=== PATIENT | female | born 2000 ===

== ENCOUNTER 2023-04-12 18:00 | Inpatient (IN) | payer OTHER ==
[2023-04-12] MEDS ORDERED: Acetaminophen 500 MG TAB PO PRN (20:07)
[2023-04-12] MEDS ORDERED: Promethazine HCl 25 MG/ML VIAL IM PRN (20:07)
[2023-04-12] MEDS ORDERED: hydrALAZINE 20 MG/ML VIAL SLOW IVP PRN (20:07)
[2023-04-12] MEDS ORDERED: Ondansetron PF 4 MG/2 ML Vial IVP PRN (20:07)
[2023-04-12] MEDS ORDERED: Carboprost 250 MCG/ML AMP IM PRN (20:07)
[2023-04-12] MEDS ORDERED: Misoprostol 200 MCG TAB PR PRN (20:07)
[2023-04-12] MEDS ORDERED: Methylergonovine 0.2 MG/ML VIAL IM PRN (20:07)
[2023-04-12] MEDS ORDERED: Lidocaine 1% (PF) 30 ML VIAL SC PRN (20:07)
[2023-04-12] MEDS ORDERED: Oxytocin 30 units/NS 500 ML 500 ML IV SCH ×3 (20:15)
[2023-04-13 02:20] VITALS: BMI 24.0
[2023-04-13 02:45] LABS: Hematocrit 33.8 % (34.9-44.5); Hemoglobin 11.7 g/dL (12.0-15.5); Mean Corpuscular HGB CONC 34.6 g/dL (32.0-36.0); Mean Corpuscular Hemoglobin 31.7 pg (27.0-33.0); Mean Corpuscular Volume 91.6 fl (81.6-98.3); Mean Platelet Volume 10.5 fl (7.4-10.4); Platelet Count 275 10x3/uL (150-450); RBC Distribution Width 12.6 % (11.5-14.5); Red Blood Cell (RBC) Count 3.69 10x6/uL (3.90-5.03); White Blood Cell (WBC) Count 5.8 10x3/uL (3.5-10.5)
[2023-04-13 03:02] LABS: HBSAg Index 0.18 S/CO (0-0.99); Hep B Surf Ag - L&D Non-Reactive S/CO (NonReactive); Syphilis Antibody Nonreactive (Nonreactive); Syphilis Antibody Index 0.12 S/CO (<1.00 Non-Reactive)
[2023-04-13] MEDS: Lactated Ringer's 1,000 ML IV SCH (03:42)
[2023-04-13] MEDS ORDERED: ePHEDrine Sulfate 50 MG/10 ML VIAL ONE (08:00)
[2023-04-13] MEDS ORDERED: Bupivacaine 0.25% HCL 30 ML VIAL ONE (08:00)
[2023-04-13] MEDS ORDERED: Lactated Ringer's 500 ML IV PRN (08:38)
[2023-04-13] MEDS ORDERED: Ondansetron PF 4 MG/2 ML Vial IVP PRN (08:38)
[2023-04-13] MEDS ORDERED: Promethazine HCl 25 MG/ML VIAL IM PRN (08:38)
[2023-04-13] MEDS ORDERED: Moisturizing Cream (Eucerin) 113 GM JAR TOP PRN (08:38)
[2023-04-13] MEDS ORDERED: Naloxone HCl 0.4 mg/ml Vial IVP PRN ×2 (08:38)
[2023-04-13] MEDS ORDERED: ePHEDrine Sulfate 50 MG/10 ML VIAL SLOW IVP PRN (08:38)
[2023-04-13] MEDS ORDERED: diphenhydrAMINE 50 MG/ML VIAL IVP PRN (08:38)
[2023-04-13] MEDS ORDERED: fentaNYL 2 mcg/Ropivacaine 0.2% Epidural 100 ML CADD EPIDURAL SCH (08:45)
[2023-04-13] MEDS ORDERED: Communication Order-Pharmacy FS SCH (08:45)
[2023-04-13] MEDS: fentaNYL/Ropivacaine Epidural 100 ML ONE (08:51)
[2023-04-13 15:12] LABS: Amphetamine Not Detected (NotDetected); Barbiturates Screen Not Detected (NotDetected); Benzodiazepine Screen Not Detected (NotDetected); Cocaine Metabolite Screen Not Detected (NotDetected); Methadone Not Detected (NotDetected); Methamphetamine Detected (NotDetected); Opiate Screen Not Detected (NotDetected); Oxycodone Screen Not Detected (NotDetected); Phencyclidine (PCP) Not Detected (NotDetected); THC/Cannabinoid Screen Not Detected (NotDetected); Tricyclic Screen Not Detected (NotDetected)
[2023-04-13] MEDS ORDERED: Milk Of Magnesia 30 ML UDCUP PO PRN (20:41)
[2023-04-13] MEDS ORDERED: Boostrix 0.5 ML (Tdap) VIAL (>/=7 yrs of age) IM ONE (20:41)
[2023-04-13] MEDS ORDERED: Bisacodyl 10 MG SUPP PR PRN (20:41)
[2023-04-13] MEDS ORDERED: hydrALAZINE 20 MG/ML VIAL SLOW IVP PRN (20:41)
[2023-04-13] MEDS: Acetaminophen 325 MG TAB PO PRN (21:01)
[2023-04-13] MEDS: Docusate 100 MG CAP PO SCH (21:01)
[2023-04-13] MEDS: Ibuprofen 800 MG TAB PO SCH (21:01)
[2023-04-14] MEDS: Prenatal Vitamin 1 TAB PO SCH (08:40)
[2023-04-14] MEDS: Ferrous Sulfate 325 MG TAB PO SCH (08:40)
[2023-04-15 07:39] VITALS: BP 117/72; TEMP 98
== END 2023-04-15 12:45 | disposition home or self-care (01) | DRG 807 ==
LOC: CSHLD 20:07 → UNDOADMIN 04-13 00:49 → CSHPP 04-13 22:20
PROVIDERS: ADMIT Family Medicine; ATTEND Family Medicine
PROC: 10E0XZZ Delivery of Products of Conception, External Approach (ICD-10-PCS; principal; 2023-04-13)
PROC: 10907ZC Drainage of Amniotic Fluid, Therapeutic from Products of Conception, Via Natural or Artificial Opening (ICD-10-PCS; 2023-04-13)
DX: O36.5930 Maternal care for other known or suspected poor fetal growth, third trimester, not applicable or unspecified (principal); Z37.0 Single live birth; Z3A.39 39 weeks gestation of pregnancy
CPT/HCPCS: 36415; 51702; 80306; 85027; 86780; 86850; 86870; 86900; 86901; 86905; 86922; 87340; 88307; J0665; J7120